=== PATIENT | female | born 1990 | race African-American/Black ===

== ENCOUNTER 2021-07-08 10:27 | Emergency (ER) | payer MEDICAID ==
[~2021-07-08] VITALS: Ht 172.7 cm; Wt 108.0 kg
[~2021-07-08 10:27] MED LIST: NO MEDICATION
[2021-07-08 10:29] VITALS: BP 139/54
[2021-07-08] MEDS ORDERED: MAGNESIUM/ALUMINUM HYDROXIDE/SIMETHICONE 30ML UDC PO STA (10:34)
[2021-07-08] MEDS ORDERED: FAMOTIDINE 20MG/2ML VIAL IV STA (10:34)
[2021-07-08] MEDS ORDERED: ONDANSETRON HCL 4MG/2ML INJ IV STA (10:34)
[2021-07-08] MEDS ORDERED: SODIUM CHLORIDE 0.9% 1,000 ML IV ONE (10:45)
[2021-07-08] MEDS ORDERED: ONDANSETRON HCL 4MG/2ML INJ IV NR (13:00)
[2021-07-08] MEDS ORDERED: MAGNESIUM/ALUMINUM HYDROXIDE/SIMETHICONE 30ML UDC PO NR (13:00)
[2021-07-08] MEDS ORDERED: FAMOTIDINE 20MG/2ML VIAL IV NR (13:00)
[2021-07-08 13:01] LABS: CLARITY URINE CLEAR (CLEAR); COLOR URINE YELLOW (YELLOW); KETONES URINE 3+ (NEGATIVE); LEUKOCYTE ESTERASE URINE NEGATIVE (NEGATIVE); NITRITE URINE NEGATIVE (NEGATIVE); OCCULT BLOOD URINE NEGATIVE (NEGATIVE); PROTEIN URINE 1+ (NEGATIVE); SPECIFIC GRAVITY URINE 1.019 (1.005-1.030)
[2021-07-08 13:03] LABS: BASOPHILS % 0.7 % (0.0-2.0); HEMATOCRIT. 37.1 % (36.0-48.0); HEMOGLOBIN. 11.6 g/dL (12.0-16.0); LYMPHOCYTES % 8.7 % (20.0-50.0); MEAN CORPUSCULAR HEMOGLOBIN 21.7 pg (28.0-32.0); MEAN CORPUSCULAR VOLUME 69.1 fL (81.0-99.0); MEAN PLATELET VOLUME 9.9 fl (7.4-10.4); MONOCYTES % 4.3 % (2.0-8.0); NEUTROPHILS % 86.3 % (40.0-76.0); PLATELET 300 x1000/uL (130-400); RED BLOOD CELL COUNT 5.37 mill/uL (4.2-5.4); RED CELL DISTRIBUTION WIDTH 15.9 % (11.6-14.6)
[2021-07-08 13:05] LABS: CHLORIDE 107 mEq/L (98-107)
[2021-07-08 13:14] LABS: HCG SCREEN NEGATIVE
[2021-07-08 13:43] LABS: PLATELET ESTIMATE NORMAL
[2021-07-08] MEDS ORDERED: OMEP40CA20 MT (14:15)
[2021-07-08] MEDS ORDERED: KETOROLAC 15MG/ML VIAL IV ONE (14:15)
== END 2021-07-08 14:31 | disposition home or self-care (01) ==
LOC: ER 10:27
DX: R10.33 Periumbilical pain (principal); R11.2 Nausea with vomiting, unspecified; F12.10 Cannabis abuse, uncomplicated
CPT/HCPCS: 36415; 74176; 80053; 81003; 81025; 83690; 84703; 85025; 96361; 96374; 96375; 99284; J2405; J3490; J7030